=== PATIENT | male | born 1955 | race Two or more races ===

== ENCOUNTER 2024-03-10 17:03 | Emergency (ER) | payer OTHER ==
[~2024-03-10] VITALS: Ht 177.8 cm; Wt 83.9 kg
[2024-03-10] MEDS ORDERED: FENOFIBRATE50 MG (17:27)
[2024-03-10] MEDS ORDERED: LEVOTHYROXINE25 MCG (17:27)
[2024-03-10] MEDS ORDERED: LOVAZA1 GM (17:27)
[2024-03-10] MEDS ORDERED: FAMOTIDINE/PF 20 MG/2 ML VIAL ONE (18:10)
[2024-03-10] MEDS ORDERED: BARIUM SULFATE 450 ML ORAL.SUSP PO ONE (18:10)
[2024-03-10] MEDS ORDERED: DICYCLOMINE HCL 10 MG CAPSULE PO ONE (18:10)
[2024-03-10] MEDS ORDERED: DICYCLOMINE HCL 20 MG TABLET PO ONE (18:15)
[2024-03-10] MEDS ORDERED: FAMOtidine 10 MG/ML (4ML VIAL) IV ONE (18:15)
[2024-03-10] MEDS ORDERED: 0.9 % SODIUM CHLORIDE 1,000 ML IV ONE (18:15)
[2024-03-10 18:38] LABS: HEMATOCRIT 43.1 % (39.0-48.0); HEMOGLOBIN 14.5 g/dL (13-16.00); MEAN CELL VOLUME 90.2 fL (80.0-100.00); MEAN CORPUSCULAR HEMOGLOBIN 30.4 pg (27.00-32.0); MEAN CORPUSCULAR HGB CONC 33.7 g/dl (32.0-36.0); PLATELET COUNT 224 K/uL (150-450); RED BLOOD COUNT 4.78 M/uL (4.00-6.00); RED CELL DISTRIBUTION WIDTH 13.7 % (11.5-14.5)
[2024-03-10 18:55] LABS: PARTIAL THROMBOPLASTIN TIME 25.1 SECONDS (22.0-34.0); PROTHROMBIN TIME 10.9 SECONDS (9.0-11.5)
[2024-03-10 18:57] LABS: URINE APPEARANCE Clear; URINE BILIRRUBIN Negative (NEGATIVE); URINE BLOOD Negative; URINE COLOR Yellow; URINE GLUCOSE Negative (NEGATIVE); URINE KETONE Negative (NEGATIVE); URINE LEUKOCYTE Negative; URINE NITRATE Negative; URINE PROTEIN Negative (NEGATIVE); URINE UROBILINOGEN 0.2 E.U./dl
[2024-03-10 19:00] LABS: URINE BACTERIA 7.3 uL (0.0-1933); URINE EPITHELIAL CELLS 3.3 uL (0.0-38.8); URINE WBC 4.7 uL (0.0-23.2)
[2024-03-10 19:03] LABS: ALBUMIN 3.9 gm/dL (3.4-5.0); BILIRUBIN TOTAL 0.29 mg/dL (0.3-1.2); CALCIUM 10.1 mg/dL (8.5-10.1); CREATININE SERUM 1.07 mg/dL (0.70-1.30); GFR 68.52; GLOBULINA 3.3 G/DL (2.4-3.5); POTASSIUM 4.34 mEq/L (3.5-5.1); TOTAL PROTEIN 7.2 gm/dL (6.4-8.2)
[2024-03-10 19:05] LABS: URINE RBC 0.4 uL (0.0-20.8)
[2024-03-10] MEDS ORDERED: ELVITEG/COB/EMTRI/TENOFO DISOP 1 UDTAB TABLET PO ONE ×2 (21:50→21:51)
[2024-03-10] MEDS ORDERED: PROBIOTIC1 EAC2 PO (23:26)
[2024-03-10] MEDS ORDERED: PEPCID AC20 MG PO (23:26)
[2024-03-10] MEDS ORDERED: TAMS0.4C PO (23:26)
[2024-03-10] MEDS ORDERED: BACTRIM DS TAB1 EACH PO (23:26)
[2024-03-10] MEDS ORDERED: POLY119PG PO (23:26)
== END 2024-03-10 23:35 | disposition home or self-care (01) ==
LOC: ER 17:05
PROVIDERS: General Practice
DX: K59.00 Constipation, unspecified (principal); R10.9 Unspecified abdominal pain; I10 Essential (primary) hypertension; E03.8 Other specified hypothyroidism; E11.9 Type 2 diabetes mellitus without complications
CPT/HCPCS: 36415; 74177; 96365; 96366; 99284; J3490; J7030; Q9965

== ENCOUNTER → 2024-04-07 11:05 | Outpatient (CLI) | payer OTHER ==
[~2024-04-07 11:05] MED LIST: BACTRIM DS TAB1 EACH PO; FENOFIBRATE50 MG; LEVOTHYROXINE25 MCG; LOVAZA1 GM; PEPCID AC20 MG PO; POLY119PG PO; PROBIOTIC1 EAC2 PO; TAMS0.4C PO
[2024-04-07 12:11] LABS: AMYLASE 42 U/L (25-115); LIPASE 46 U/L (13-75)
== END | disposition home or self-care (01) ==
LOC: LAB 11:05
PROVIDERS: ATTEND Internal Medicine Endocrinology, Diabetes & Metabolism
DX: R74.8 Abnormal levels of other serum enzymes (principal); R74.01 Elevation of levels of liver transaminase levels; K85.00 Idiopathic acute pancreatitis without necrosis or infection